=== PATIENT | female | born 2000 | race Caucasian/White ===

== ENCOUNTER 2023-08-19 09:29 | Inpatient (IN) | payer MEDICAID, SELFPAY ==
[2023-08-19 09:31] VITALS: BP 133/89; PULSE 60; RESP 16; TEMP 36.6; O2SAT 100
--- NOTE | 2023-08-19 10:09 | EX.ED.SAOD ---
HPI History of Present Illness Chief Complaint: Substance Abuse Informant: patient Onset/Context/Timing Onset: Yesterday Context: Gradual Onset Timing: Continuous Worsened by: Nothing Relieved by: Nothing Associated Symptoms Associated Symptoms: Positive for vomiting*, fever* and palpatations; Negative for diarrhea*, rash*, seizure, tremor, change in mental status, suicidal ideation or homicidal ideation Narrative Narrative: Patient Johann requesting detox from fentanyl, benzos, and amphetamines. Patient states her last use was yesterday. Patient states she uses approximately half a gram per day. Patient has been through detox at a different facility a few months ago. Patient states she was seen in the emergency department at [facility] yesterday and was diagnosed with a urinary tract infection. Patient states she was given 1 dose of an antibiotic for that but was not given a prescription for any antibiotics. Patient admits to some nausea and vomiting. Patient admits to subjective fevers, chills, and sweats. Patient also admits to some palpitations. Patient denies any diarrhea. Patient denies any seizures or tremors. Patient denies any suicidal or homicidal ideations. PFSH PFSH Medical History no medical history no medical history Home Medications NK 08/19/23 [History Last Taken Unknown] Allergy/AdvReac Type Severity Reaction Status Date / Time No Known Allergies Allergy Verified 08/19/23 09:34 Surgical History no surgical history no surgical history Social History (Updated 08/19/23 @ 10:[address] Dewey Knight, DO) Smoking Status: Current every day smoker tobacco type: cigarettes Electronic Cigarette Use: with nicotine substance use type: amphetamines and opiates ROS ROS ED Constitutional Constitutional ED: Reports chills, fever(s), subjective and sweats Eyes Eyes: Denies blurry vision or change in vision ENT ENT ED: Denies rhinorrhea or sore throat Cardiovascular Cardiovascular: Reports palpitations; Denies chest pain Respiratory/Chest Respiratory/Chest: Denies cough or dyspnea Gastrointestinal Gastrointestinal: Reports nausea and vomiting; Denies diarrhea Genitourinary Genitourinary ED: Reports dysuria; Denies hematuria Musculoskeletal Musculoskeletal: Denies back pain or neck pain Integumentary Denies abscess or rash Neurologic Neurologic: Denies headache(s) or weakness Allergic/Immunologic Allergic/Immunologic ED: Denies mouth swelling or urticaria EXAM Physical Exam Const Vital Signs: 08/19/23 09:31 Temperature 97.9 F Temperature Source Temporal Pulse Rate 60 Respiratory Rate 16 Blood Pressure 133/89 H Blood Pressure Mean 103 Pulse Ox 100 Oxygen Delivery Method Room Air Positive well nourished and well developed General Appearance ED: well developed and NAD HEENT Reports moist mucous membranes Neck supple and no JVD Resp normal respiratory effort and clear to auscultation bilaterally Cardio regular rate and regular rhythm GI soft to palpation, non-tender and non-distended Neuro oriented x3, CN's II-XII intact bilaterally and no sensory deficits noted Sensorium / Orientation: alert Motor Exam: strength 5/5 throughout Psych mental status grossly normal and thought process normal MDM MDM MDM Narrative Medical decision making narrative: Medical screening labs will be obtained. CBC will be obtained to assess for leukocytosis and anemia. Comprehensive metabolic profile will be obtained to assess for hepatic function, renal function, and electrolyte abnormality. Urinalysis will be obtained to assess for urinary tract infection and hematuria. Serum hCG will be obtained to assess for . Serum alcohol level will be obtained to assess for alcohol intoxication. Urine tox screen will be obtained to assess for substance abuse. Lab Data Attestation: I reviewed the patient's lab results. Lab results narrative: CBC was reviewed and was within normal limits. Comprehensive metabolic profile was reviewed and was within normal limits. Serum hCG was reviewed and was negative. Urinalysis was reviewed. There is a leukocyte esterase of 500 with 50-100 white blood cells. There is 2+ bacteria. Urine tox screen was reviewed and was positive for cannabinoids and benzodiazepines. Serum alcohol level was reviewed and was normal at less than 3.0. Labs: Laboratory Results - last 24 hr 08/19/23 10:36 WBC 10.2 RBC 4.35 Hgb 12.3 Hct 38.2 MCV 87.8 MCH 28.3 MCHC 32.2 RDW Std Deviation 41.5 RDW Coeff of Christin 12.7 Plt Count 174 MPV 12.4 H Immature Gran % (Auto) 0.300 Neut % (Auto) 81.2 H Lymph % (Auto) 14.7 L [place] % (Auto) 3.4 Eos % (Auto) 0.0 Baso % (Auto) 0.4 Absolute Neuts (auto) 8.3 H Absolute Lymphs (auto) 1.50 Nucleated RBC % 0 Sodium 145 Potassium 3.9 Chloride 115 H Carbon Dioxide 25.0 Anion Gap 5 BUN 10 Creatinine 0.69 Estim Creat Clear Calc 85.31 Est GFR (MDRD) Af Amer 138 Est GFR (MDRD) Non-Af 114 BUN/Creatinine Ratio 14.5 Glucose 108 H Calcium 8.9 Total Bilirubin 0.60 AST 107 H ALT 133 H Alkaline Phosphatase 87 Total Protein 6.8 Albumin 3.7 Globulin 3.1 Albumin/Globulin Ratio 1.2 Serum , Qual NEGATIVE Urine Color Yellow Urine Clarity Sl. Cloudy Urine pH 5.0 Ur Specific [place] 1.025 Urine Protein 100 H Urine Glucose (UA) Normal Urine Ketones 5 H Urine Occult Blood 10 H Urine Nitrite Negative Urine Bilirubin Negative Urine Urobilinogen 1 H Ur Leukocyte Esterase 500 H Urine RBC 0 SEEN Urine WBC 50-100 SEEN Ur Squamous Epith Cells 0-5 SEEN Urine Bacteria 2+ Urine Mucus 3+ Urine Opiates Screen NEGATIVE Urine Methadone Screen NEGATIVE Ur Barbiturates Screen NEGATIVE Ur Phencyclidine Scrn NEGATIVE Ur Amphetamines Screen NEGATIVE MDMA (Ecstasy) Screen NEGATIVE U Benzodiazepines Scrn POSITIVE H Urine Cocaine Screen NEGATIVE U Cannabinoids Screen POSITIVE H Ur Drug Screen Comment Ethyl Alcohol < 3.0 Management Discussion w/another healthcare provider: Hospitalist Treatment and Re-Evaluation Narrative: Patient was given a dose of Zofran here. Patient was started on Macrobid. Urine culture was ordered. Case was discussed with the hospitalist. She will admit the patient to her service. Patient understood and was agreeable with the plan. All questions were answered. Discharge Plan Triage Chief Complaint: Substance Abuse ED Provider: Dewey Knight Dx/Rx/DC Orders Clinical Impression: Urinary tract infection, Opiate withdrawal, Benzodiazepine withdrawal Prescriptions: No Action NK Primary Care Provider: Care Physician,No Primary Referrals: Care Physician,No Primary [Primary Care Provider] - Disposition Disposition: Acute Care Hospital [facility]
[2023-08-19 10:12] VITALS: BMI 15.7
[2023-08-19 10:41] LABS: Red Blood Cells-Urine 0 SEEN /hpf (0-5)
[2023-08-19 10:42] LABS: Absolute Neutrophil Count 8.3 X10^3/uL (2.0-7.7); Basophil# 0.04 X10^3/uL; Basophil% 0.4 % (0-1); Hematocrit 38.2 % (37-47); Hemoglobin 12.3 g/dL (12.0-15.0); Lymphocyte % 14.7 % (19-41); Mean Corp Hgb Conc 32.2 g/dL (32-36); Mean Corpuscular Hgb 28.3 pg (27.0-32.0); Mean Corpuscular Volume 87.8 fL (81-99); Mean Platelet Vol. 12.4 fl (6.2-12.0); Monocyte# 0.35 X10^3/uL; Monocyte% 3.4 % (0-10); NRBC Flagged by Analyzer 0 % (0-5); Neutrophil % 81.2 % (47-70); Platelet Count 174 K/mm3 (150-450); RBC Distribution Width CV 12.7 % (11.6-14.6); RBC Distribution Width SD 41.5 fl (35.1-43.9); Red Blood Count 4.35 M/mm3 (4.2-5.4); White Blood Count 10.2 K/mm3 (4.4-11.0)
[2023-08-19] MEDS: Ondansetron ODT 4 MG Tablet PO (10:43)
[2023-08-19 10:48] LABS: Color, Urine Yellow (Yellow); Glucose, Dipstick Normal (Normal); Ketone-Dipstick 5 mg/dl (Negative); Leukocyte Esterase-Dipstick 500 /ul (Negative); Nitrite-Dipstick Negative (Negative); Occult Blood-Urine 10 /ul (Negative); Protein-Dipstick 100 mg/dl (Negative); Specific Gravity, Urine 1.025 (1.002-1.030); Urine Bilirubin Dipstick Negative (Negative); Urine Clarity Sl. Cloudy (Clear); Urine Urobilinogen 1 mg/dl (Normal)
[2023-08-19 10:52] LABS: Internal QC Validated? YES +Cl - CLEAR BKGD; Pregnancy, Serum, hCG Quali. NEGATIVE Negative
[2023-08-19 11:00] LABS: ALB/GLOB Ratio 1.2 RATIO (0.9-2.4); AST(SGOT) 107 U/L (15-37); Alanine Aminotransfer ALT/SGPT 133 U/L (13-56); Albumin, Serum 3.7 g/dL (3.2-5.0); Alkaline Phosphatase 87 U/L (45-117); Anion Gap 5 (5-15); BUN 10 mg/dL (7-18); BUN/Creat Ratio 14.5 RATIO (10-20); Calcium,Total 8.9 mg/dL (8.5-10.1); Chloride 115 mmol/L (98-107); Creatinine, Serum 0.69 mg/dL (0.55-1.02); EST Glomerular Filtration Rate 114 mL/min (>60); Est Glom Filt Rate - Afr Amer 138 mL/min (>60); Estimated Creatinine Clearance 85.31 ml/min; Globulin 3.1 g/dL (2.2-4.2); Glucose 108 mg/dL (74-106); Potassium 3.9 mmol/L (3.5-5.1); Protein, Total 6.8 g/dL (6.4-8.2); Sodium Level 145 mmol/L (136-145)
[2023-08-19 11:06] LABS: Amphetamine Urine VISTA NEGATIVE (<1000 ng/mL); Barbiturate Urine VISTA NEGATIVE (< 200 ng/mL); Benzodiazepine Urine VISTA POSITIVE (< 200 ng/mL); Cocaine Urine VISTA NEGATIVE (< 300 ng/mL); Ecstacy Urine VISTA NEGATIVE (< 500 ng/mL); Methadone Urine VISTA NEGATIVE (< 300 ng/mL); PCP Urine VISTA NEGATIVE (< 25 ng/mL); THC Urine VISTA POSITIVE (< 50 ng/mL); Vista UDS pH Range 5
[2023-08-19 11:08] LABS: Bacteria 2+ /hpf (None Seen); Mucous, Urine 3+ /hpf (<or=2+); Squamous Epithelial Cells - UA 0-5 SEEN /hpf (5-10); White Blood Cells 50-100 SEEN /hpf (0-5)
[2023-08-19 11:12] LABS: Alcohol, Blood (Medical)-Serum < 3.0 mg/dL
[2023-08-19] MEDS: Nitrofurantoin Macrocrystals 100 MG Capsule PO ×2 (11:38→21:24)
--- NOTE | 2023-08-19 11:52 | PCM.HP.STD ---
HPI - General General Date of Admission: 08/19/23 Date of Service: 08/19/23 Chief Complaint: Request for detox from opiates HPI Narrative BHAVANI BRIDGES, is a 23 F who presented to the emergency department at [facility] on 08/19/2023 requesting detox from opiates. There was initially some question of whether or not she needed detox from benzodiazepine however when I asked her about her benzo use she reported that her opiate must have been laced with that she does not use benzodiazepines on a regular basis. She states she uses about 1 g of snorted both fentanyl day. She is never used IV drugs. She states she is been using for at least a couple years now and had about 1 month period of sobriety about a month ago. 2 months ago she was in for detox and did well for about a month but then started using again. Her boyfriend uses as well and is also here for detox. She admits to marijuana use and she states she vapes on a daily basis. She is also used methamphetamines on a regular basis previously as well. She was seen at [facility] yesterday and diagnosed with a urinary tract infection and given antibiotics as well as a prescription but was not able to fill it. Patient states her last dose was yesterday and she currently is just feeling generalized achiness and having some mild nausea. Vital signs at this time are unremarkable. CBC is unremarkable other than a left shift of 81.2% neutrophilia. Her chemistry panel is unremarkable other than transaminases that are elevated with an AST of 107 and an ALT of 133. I did question her about hepatitis and she states she is not aware that she is positive and has never used IV drugs. Serum test is negative. UA is consistent with infection showing leuk esterase, loaded with white cells and 2+ bacteria. The emergency department she was given Macrobid for UTI and request for admission was made for detox. [facility] Medical History Marijuana use Tobacco abuse Medical History no medical history Home Medications NK 08/19/23 [History Last Taken Unknown] Allergy/AdvReac Type Severity Reaction Status Date / Time No Known Allergies Allergy Verified 08/19/23 09:34 no significant family history Surgical History no surgical history no surgical history Social History (Updated 08/19/23 @ 12:[address] Amy Edwar, DO) Smoking Status: Current every day smoker tobacco type: cigarettes Electronic Cigarette Use: with nicotine alcohol intake: never substance use type: marijuana, amphetamines and opiates ROS Constitutional Constitutional: Reports chills and malaise; Denies anorexia, change in weight, fatigue, fever(s), night sweats, weakness or other Eyes Eyes: Denies blurry vision, change in eye color, change in vision, discharge from eye(s), double vision, erythema, eye pain, loss of vision or other ENT HEENT: Denies abnormal hearing, dysphagia, ear pain, epistaxis, headache(s), hearing loss, nasal congestion, nasal discharge, post nasal drip, sinus pressure, sore throat or other Cardiovascular Cardiovascular: Denies chest pain, claudication, dyspnea on exertion, edema, lightheadedness, orthopnea, palpitations, paroxysmal nocturnal dyspnea, rapid heart rate, syncope or other Respiratory/Chest Respiratory/Chest: Denies cough, dyspnea, excessive phlegm production, hemoptysis, productive cough, shortness of breath at rest, shortness of breath with exertion, wheezing or other Gastrointestinal Gastrointestinal: Reports nausea; Denies abdominal pain, coffee ground emesis, constipation, diarrhea, dyspepsia, hematemesis, hematochezia, loose stools, melena, vomiting or other Genitourinary Genitourinary: Denies burning urination, difficulty urinating, dysuria, hematuria, nocturia, urinary frequency, urinary hesitancy, urinary incontinence, urinary urgency or other Musculoskeletal Musculoskeletal: Reports myalgias; Denies arthralgias, back pain, joint pain, joint stiffness, joint swelling, neck pain or other Neurologic Neurologic: Denies abnormal gait, abnormal speech, confusion, disequilibrium, dizziness, focal weakness, headache(s), numbness, paresthesias, seizure-like activity, seizures, syncope, tingling, tremor(s) or other Psychiatric Psychiatric: Denies anxiety, depression, homicidal ideation, suicidal ideation or other Endocrine Endocrinology: Denies change in body appearance, cold intolerance, excessive sweating, heat intolerance, polydipsia, polyuria or other Hematologic/Lymphatic Hematologic/Lymphatic: Denies anemia, easy bleeding, easy bruising, lymphadenopathy or other Allergic/Immunologic Allergic/Immunologic: Denies rhinitis, hives, eczemia, asthma or other Vital Signs Vital Signs Vital Signs: 08/19/23 09:31 Temperature 97.9 F Temperature Source Temporal Pulse Rate 60 Respiratory Rate 16 Blood Pressure 133/89 H Blood Pressure Mean 103 Pulse Ox 100 Oxygen Delivery Method Room Air Weight Weight: 41.9 kg Body Mass Index (BMI) 15.7 Physical Exam Const alert, oriented x3 and no apparent distress; Negative for average body habitus, healthy appearing or well nourished Constitutional Narrative: Extremely thin, white female, lying in bed, appears comfortable nontoxic appears under nourished HEENT normocephalic, head/scalp atraumatic, hearing grossly normal bilaterally and moist oral mucous membranes HEENT Narrative: Patient is good, Mallampati is 1, no thrush Eyes PERRL, EOMs intact bilaterally and conjunctivae normal Eyes Narrative: Eyes are slightly bloodshot Neck no lymphadenopathy and supple Neck Narrative: Trachea midline, notes rate enlargement Resp normal respiratory effort, no retractions, no use of accessory muscles and clear to auscultation bilaterally Auscultation: Negative for rales, rhonchi or wheezes Cardio regular rate, regular rhythm, S1 normal heart sound, S2 normal heart sound, no murmurs, no rub, no gallops and no clicks GI normal to inspection, nondistended, normoactive bowel sounds, soft to palpation and non-tender GI Narrative: Scaphoid abdomen Extremity no clubbing, cyanosis or edema Extremity Narrative: Decreased lean muscle mass Skin skin turgor normal, no jaundice, no petechiae and no mottling Neuro oriented x3, CN's II-XII intact bilaterally, moves all extremities and no focal motor deficits Speech: speech normal Motor Exam: strength 5/5 throughout Psych affect normal Psych Narrative: Eye contact is good, patient interacts appropriately, appears a bit anxious Results Lab / Micro Data 08/19/23 10:36 08/19/23 10:36 Labs: Laboratory Results - last 24 hr 08/19/23 10:36: WBC 10.2, RBC 4.35, Hgb 12.3, Hct 38.2, MCV 87.8, MCH 28.3, MCHC 32.2, RDW Std Deviation 41.5, RDW Coeff of Christin 12.7, Plt Count 174, MPV 12.4 H, Immature Gran % (Auto) 0.300, Neut % (Auto) 81.2 H, Lymph % (Auto) 14.7 L, [place] % (Auto) 3.4, Eos % (Auto) 0.0, Baso % (Auto) 0.4, Absolute Neuts (auto) 8.3 H, Absolute Lymphs (auto) 1.50, Nucleated RBC % 0, Sodium 145, Potassium 3.9, Chloride 115 H, Carbon Dioxide 25.0, Anion Gap 5, BUN 10, Creatinine 0.69, Estim Creat Clear Calc 85.31, Est GFR (MDRD) Af Amer 138, Est GFR (MDRD) Non-Af 114, BUN/Creatinine Ratio 14.5, Glucose 108 H, Calcium 8.9, Total Bilirubin 0.60, AST 107 H, ALT 133 H, Alkaline Phosphatase 87, Total Protein 6.8, Albumin 3.7, Globulin 3.1, Albumin/Globulin Ratio 1.2, Serum , Qual NEGATIVE, Urine Color Yellow, Urine Clarity Sl. Cloudy, Urine pH 5.0, Ur Specific [place] 1.025, Urine Protein 100 H, Urine Glucose (UA) Normal, Urine Ketones 5 H, Urine Occult Blood 10 H, Urine Nitrite Negative, Urine Bilirubin Negative, Urine Urobilinogen 1 H, Ur Leukocyte Esterase 500 H, Urine RBC 0 SEEN, Urine WBC 50-100 SEEN, Ur Squamous Epith Cells 0-5 SEEN, Urine Bacteria 2+, Urine Mucus 3+, Urine Opiates Screen NEGATIVE, Urine Methadone Screen NEGATIVE, Ur Barbiturates Screen NEGATIVE, Ur Phencyclidine Scrn NEGATIVE, Ur Amphetamines Screen NEGATIVE, MDMA (Ecstasy) Screen NEGATIVE, U Benzodiazepines Scrn POSITIVE H, Urine Cocaine Screen NEGATIVE, U Cannabinoids Screen POSITIVE H, Ur Drug Screen Comment , Ethyl Alcohol < 3.0 Assessment & Plan Assessment/Plan (1) Opiate abuse, continuous: (2) Methamphetamine abuse: (3) UTI (urinary tract infection): (4) Transaminitis: (5) Desire for detoxification: PLAN: Plan Opiate abuse with pending withdrawal -Patient uses 1 g daily -Recently was sober for a month but restarted using -No significant symptoms at this time -Subutex per [facility] protocol -Supportive medication -180 consultation Acute urinary tract infection -Macrobid started the emergency department -Urine culture sent -Continue Macrobid x 3 days on the floor and watch for sensitivities Transaminitis -Patient denies having hepatitis C -Denies ever using IV drugs -Check hepatitis C antibody and HIV -Patient is unaware if she stopped with anybody who is hepatitis C positive Polysubstance abuse -See above -Recommend cessation Nicotine abuse -Patient vapes on a regular basis -Nicotine patch available DVT prophylaxis -Low risk -Recommend early and frequent ambulation CODE STATUS -Full code Charges/Coding Visit Charges Inpatient E&M: 25043 Init Hosp L2
--- NOTE | 2023-08-19 11:56 | NURSING ---
MED SURG DAYNA OPIATE WITHDRAWAL, BENZODIAZEPINE WITHDRAWAL, UTI
[2023-08-19 12:28] VITALS: BP 128/79; PULSE 70; RESP 16; TEMP 36.7; O2SAT 100
[2023-08-19 13:46] VITALS: BP 124/74; PULSE 54; RESP 18; TEMP 37; O2SAT 99
[2023-08-19 14:08] VITALS: BMI 15.6
[2023-08-19] MEDS: hydrOXYzine PAM 25 MG Capsule 50 MG PO ×2 (14:38→19:45)
[2023-08-19] MEDS: Ibuprofen 400 MG Tablet PO ×2 (14:39→19:45)
[2023-08-19] MEDS: Buprenorphine HCl 2 MG TAB.SUBL SL ×2 (14:39→21:27)
--- NOTE | 2023-08-19 14:49 | CPS ---
Not interested in I.S. or PEP.
[2023-08-19 16:01] LABS: HIV - WCH Non-Reactive (Nonreactive); Hepatitis C Antibody Non-Reactive (Nonreactive)
[2023-08-19] MEDS: Gabapentin 300 MG Capsule PO (16:24)
[2023-08-19] MEDS: Ondansetron 8 MG Tablet PO (16:24)
[2023-08-19 19:35] VITALS: BP 122/86; PULSE 41; RESP 16; TEMP 37.2; O2SAT 100
[2023-08-19] MEDS: Dicyclomine 10 MG Capsule 20 MG PO (19:45)
[2023-08-19 19:46] VITALS: PULSE 48
[2023-08-19] MEDS: busPIRone 5 MG Tablet PO (21:23)
[2023-08-19] MEDS: traZODone 100 MG Tablet PO (21:24)
[2023-08-19] MEDS: MELATONIN 3 MG TABLET PO (21:24)
[2023-08-20] VITALS (9 sets, daily range): BP systolic 96–112; BP diastolic 54–72; PULSE 43–48; RESP 16–18; TEMP 36.8–37.7; O2SAT 98
[2023-08-20] MEDS: Ondansetron 8 MG Tablet PO (03:20)
[2023-08-20] MEDS: Buprenorphine HCl 2 MG TAB.SUBL SL ×3 (05:54→21:11)
[2023-08-20] MEDS: proMETHazine 25 MG/ML Syringe 12.5 MG IM (08:50)
--- NOTE | 2023-08-20 08:50 | PCM.PN.HOSP ---
Reason for Visit Reason for Visit: Opiate detox Subjective Subjective Patient with intermittent nausea and vomiting last evening. Has taken several hot showers. Question cyclic vomiting syndrome with history of marijuana abuse. Patient also appears to have severe malnutrition. P.o. intake has been poor due to intermittent nausea and vomiting. Will try IM Phenergan and if this does not improve oral intake may need to start some IV fluids and IV antibiotics to treat her UTI as she has not yet tolerated her oral medications. Objective Data Objective Data Vital Signs: Vital Signs Temp Pulse Resp BP Pulse Ox O2 Del Method 99.8 F H 45 L 16 112/72 98 Room Air 08/20/23 03:14 08/20/23 03:14 08/20/23 03:14 08/20/23 03:14 08/20/23 03:14 08/20/23 03:14 Oxygen Delivery Method Room Air Weight: 41.4 kg Body Mass Index (BMI) 15.6 Intake & Output: Intake and Output for Last 24 Hours 08/18/23 08/19/23 08/20/23 23:59 23:59 23:59 Intake Total 600 / 900 400 / 400 Balance 600 / 900 400 / 400 Medical Nutrition Assessment Dietitian: Malnutrition Criteria Met Start: 08/19/23 16:29 Freq: Status: Active Protocol: Document 08/19/23 16:29 RMA (Rec: 08/19/23 16:29 RMA [id number]) Nutrition Malnutrition Evidence of Malnutrition Exists Yes Malnutrition (severe): Chronic,Social/Behavioral/ Environmental Evidenced By Suboptimal Energy Intake ( Severe),Weight Loss (Severe), Physical Changes (Severe) Clinical Problem Chronic Disease or Condition Related Malnutrition Etiology Severe pro-eri malnutrition in the context of social circumstance/drug abuse related to inadequate oral/ energy intake Signs/Symptoms as evidenced by BMI 15.7, ~9% weight loss x past 6-12 months , PO meeting less than 50% estimated nutrition needs x 6 months and severe muscle wasting and fat depletion in the face, orbitals and clavicle. Status Active Problem Recommendation Dietitian Recommendations/Changes Continue liberalized regular diet and encourage PO at meals . Will add 240mL ensure plus high protein with breakfast meal. Will add ice cream BID w/ lunch and dinner. Trend weight as new weights available. Lab / Micro Data 08/19/23 10:36 08/19/23 10:36 Labs: Laboratory Results - last 24 hr 08/19/23 10:36: WBC 10.2, RBC 4.35, Hgb 12.3, Hct 38.2, MCV 87.8, MCH 28.3, MCHC 32.2, RDW Std Deviation 41.5, RDW Coeff of Christin 12.7, Plt Count 174, MPV 12.4 H, Immature Gran % (Auto) 0.300, Neut % (Auto) 81.2 H, Lymph % (Auto) 14.7 L, [place] % (Auto) 3.4, Eos % (Auto) 0.0, Baso % (Auto) 0.4, Absolute Neuts (auto) 8.3 H, Absolute Lymphs (auto) 1.50, Nucleated RBC % 0, Sodium 145, Potassium 3.9, Chloride 115 H, Carbon Dioxide 25.0, Anion Gap 5, BUN 10, Creatinine 0.69, Estim Creat Clear Calc 85.31, Est GFR (MDRD) Af Amer 138, Est GFR (MDRD) Non-Af 114, BUN/Creatinine Ratio 14.5, Glucose 108 H, Calcium 8.9, Total Bilirubin 0.60, AST 107 H, ALT 133 H, Alkaline Phosphatase 87, Total Protein 6.8, Albumin 3.7, Globulin 3.1, Albumin/Globulin Ratio 1.2, Serum , Qual NEGATIVE, Urine Color Yellow, Urine Clarity Sl. Cloudy, Urine pH 5.0, Ur Specific [place] 1.025, Urine Protein 100 H, Urine Glucose (UA) Normal, Urine Ketones 5 H, Urine Occult Blood 10 H, Urine Nitrite Negative, Urine Bilirubin Negative, Urine Urobilinogen 1 H, Ur Leukocyte Esterase 500 H, Urine RBC 0 SEEN, Urine WBC 50-100 SEEN, Ur Squamous Epith Cells 0-5 SEEN, Urine Bacteria 2+, Urine Mucus 3+, Urine Opiates Screen NEGATIVE, Urine Methadone Screen NEGATIVE, Ur Barbiturates Screen NEGATIVE, Ur Phencyclidine Scrn NEGATIVE, Ur Amphetamines Screen NEGATIVE, MDMA (Ecstasy) Screen NEGATIVE, U Benzodiazepines Scrn POSITIVE H, Urine Cocaine Screen NEGATIVE, U Cannabinoids Screen POSITIVE H, Ur Drug Screen Comment , Ethyl Alcohol < 3.0 08/19/23 14:21: Hepatitis C Antibody Non-Reactive, HIV 1&2 Antibody Non-Reactive Physical Exam Const alert, oriented x3 and no apparent distress; Negative for average body habitus, healthy appearing or well nourished Constitutional Narrative: Extremely thin, white female, lying in bed, appears as if she is not feeling well but nontoxic appears malnourished HEENT normocephalic, head/scalp atraumatic, hearing grossly normal bilaterally and moist oral mucous membranes HEENT Narrative: Mallampati 1 Resp normal respiratory effort, no retractions, no use of accessory muscles and clear to auscultation bilaterally Auscultation: Negative for rales, rhonchi or wheezes Cardio regular rate, regular rhythm, S1 normal heart sound, S2 normal heart sound, no murmurs, no rub, no gallops and no clicks GI normal to inspection, nondistended, normoactive bowel sounds, soft to palpation and non-tender GI Narrative: Scaphoid abdomen Extremity no clubbing, cyanosis or edema Extremity Narrative: Decreased lean muscle mass Skin no petechiae Neuro oriented x3, moves all extremities and no focal motor deficits Psych Psych Narrative: Affect is flat and I suspect this is related to her feeling poorly, appears if she is not feeling well but eye contact is good patient interacts appropriately Assessment & Plan Assessment/Plan (1) Opiate abuse, continuous: (2) Methamphetamine abuse: (3) UTI (urinary tract infection): (4) Transaminitis: (5) Desire for detoxification: (6) Nausea and vomiting: (7) Severe malnutrition: PLAN: Plan Opiate abuse with pending withdrawal -Patient uses 1 g daily -Recently was sober for a month but restarted using -No significant symptoms at this time -Subutex per [facility] protocol -Supportive medication -180 consultation pending Acute urinary tract infection -Macrobid started the emergency department -Urine culture sent and pending -Continue Macrobid x 3 days on the floor and watch for sensitivities -If patient is not able to tolerate p.o. with addition of IM Phenergan may need to transition to IV and start IV fluids Nausea and vomiting -Suspect may be related to cyclic vomiting syndrome and withdrawal -Continue as needed antiemetics -Added IM Phenergan x 1 dose if this is not helpful may need to start some IV fluids and IV antibiotics for the above Severe malnutrition -Dietitian consulted -Discussed with nursing to obtain some milk shakes to supplement her diet -HIV is negative -Urine is negative and patient is not having menses likely related to malnutrition Transaminitis -Patient denies having hepatitis C -Denies ever using IV drugs -Hepatitis C and HIV negative -Follow-up as an outpatient for repeat lab Polysubstance abuse -See above -Recommend cessation Nicotine abuse -Patient vapes on a regular basis -Nicotine patch available DVT prophylaxis -Low risk -Recommend early and frequent ambulation CODE STATUS -Full code Charges/Coding Visit Charges Inpatient E&M: 59923 Subs Hosp L2
[2023-08-20] MEDS: Nitrofurantoin Macrocrystals 100 MG Capsule PO ×2 (11:00→21:11)
[2023-08-20] MEDS: Folic Acid 1 MG Tablet PO (11:01)
[2023-08-20] MEDS: Thiamine Hydrochloride 100 MG Tablet PO (11:01)
[2023-08-20] MEDS: busPIRone 5 MG Tablet PO ×2 (11:01→21:10)
[2023-08-20] MEDS: Acetaminophen 325 MG Tablet 650 MG PO (21:11)
[2023-08-20] MEDS: MELATONIN 3 MG TABLET PO (21:11)
[2023-08-20] MEDS: traZODone 100 MG Tablet PO (21:11)
[2023-08-21 01:37] VITALS: BP 93/57; PULSE 44; RESP 16; TEMP 36.8; O2SAT 98
[2023-08-21 05:41] VITALS: BP 112/64; PULSE 47; RESP 14; TEMP 36.6; O2SAT 98
[2023-08-21] MEDS: Buprenorphine HCl 2 MG TAB.SUBL SL ×2 (05:44→14:53)
[2023-08-21] MEDS: Dicyclomine 10 MG Capsule 20 MG PO (05:44)
[2023-08-21] MEDS: hydrOXYzine PAM 25 MG Capsule 50 MG PO ×2 (05:44→20:33)
[2023-08-21 08:00] VITALS: PULSE 43
--- NOTE | 2023-08-21 08:15 | PN.HOSP_ITS ---
Subjective Subjective Having nausea and vomiting. Objective Data Objective Data Vital Signs: Vital Signs Temp Pulse Resp BP Pulse Ox O2 Del Method 36.6 C 47 L 14 112/64 98 Room Air 08/21/23 05:41 08/21/23 05:41 08/21/23 05:41 08/21/23 05:41 08/21/23 05:41 08/21/23 05:41 Oxygen Delivery Method Room Air Weight: 41.4 kg Body Mass Index (BMI) 15.6 Intake & Output: Intake and Output for Last 24 Hours 08/19/23 08/20/23 08/21/23 23:59 23:59 23:59 Intake Total 600 / 900 1150 / 1150 100 / 100 Balance 600 / 900 1150 / 1150 100 / 100 Medical Nutrition Assessment Dietitian: Malnutrition Criteria Met Start: 08/19/23 16:29 Freq: Status: Active Protocol: Document 08/19/23 16:29 RMA (Rec: 08/19/23 16:29 RMA [id number]) Nutrition Malnutrition Evidence of Malnutrition Exists Yes Malnutrition (severe): Chronic,Social/Behavioral/ Environmental Evidenced By Suboptimal Energy Intake ( Severe),Weight Loss (Severe), Physical Changes (Severe) Clinical Problem Chronic Disease or Condition Related Malnutrition Etiology Severe pro-eri malnutrition in the context of social circumstance/drug abuse related to inadequate oral/ energy intake Signs/Symptoms as evidenced by BMI 15.7, ~9% weight loss x past 6-12 months , PO meeting less than 50% estimated nutrition needs x 6 months and severe muscle wasting and fat depletion in the face, orbitals and clavicle. Status Active Problem Recommendation Dietitian Recommendations/Changes Continue liberalized regular diet and encourage PO at meals . Will add 240mL ensure plus high protein with breakfast meal. Will add ice cream BID w/ lunch and dinner. Trend weight as new weights available. Lab / Micro Data 08/19/23 10:36 08/19/23 10:36 Micro: Microbiology 08/19/23 10:30 Urine, Clean Catch Urine Culture - Preliminary Culture exhibits no growth. Physical Exam Const alert and no apparent distress Constitutional Narrative: non-toxic. HEENT head/scalp atraumatic and moist oral mucous membranes Assessment & Plan Assessment/Plan (1) Opiate abuse, continuous: (2) Methamphetamine abuse: (3) UTI (urinary tract infection): (4) Transaminitis: (5) Desire for detoxification: (6) Nausea and vomiting: (7) Severe malnutrition: PLAN: Plan Opiate withdrawal * buprenorphine taper * 180 consultation pending Acute urinary tract infection * Nitrofurantoin through the * Urine culture pending Nausea and vomiting * Etiology may be cyclic vomiting syndrome, withdrawal v cannabinoid hyperemesis syndrome. More likely associated with withdrawal as developed after she stopped using. * Continue as needed antiemetics Severe malnutrition * Dietitian consulted * Discussed with nursing to obtain some milk shakes to supplement her diet * HIV is negative * Urine is negative and patient is not having menses likely related to malnutrition Transaminitis * Patient denies having hepatitis C. Denies ever using IV drugs. Hepatitis C and HIV negative. Follow-up as an outpatient for repeat lab Polysubstance abuse * Complicates recovery Nicotine abuse * -Patient vapes on a regular basis-Nicotine patch available DVT prophylaxis -Low risk -Recommend early and frequent ambulation CODE STATUS -Full code Disposition: plan on discharge on 08/22. Charges/Coding Visit Charges Inpatient E&M: 29725 Subs Hosp L1
[2023-08-21] MEDS: Folic Acid 1 MG Tablet PO (09:21)
[2023-08-21] MEDS: Nitrofurantoin Macrocrystals 100 MG Capsule PO ×2 (09:22→22:03)
[2023-08-21] MEDS: busPIRone 5 MG Tablet PO ×2 (09:22→22:03)
[2023-08-21] MEDS: Thiamine Hydrochloride 100 MG Tablet PO (09:22)
[2023-08-21 09:45] VITALS: BP 111/52; PULSE 43; RESP 16; TEMP 36.8; O2SAT 98
[2023-08-21] MEDS: Ondansetron 8 MG Tablet PO (12:03)
--- NOTE | 2023-08-21 12:13 | ADDICTION ---
This designer writer met with PT to conduct ASAM, MSE, AUDIT assessments and to plan for d/c. PT A+Ox4 and participated actively. All assessments completed and placed in PT's chart. PT plans to f/u with [facility] for follow-up treatment services. PT did not indicate a need for transportation post d/c from [facility].
[2023-08-21 15:03] VITALS: BP 118/74; PULSE 47; RESP 16; TEMP 37.1; O2SAT 98
[2023-08-21 22:00] VITALS: BP 100/64; PULSE 70; RESP 16; TEMP 37.4; O2SAT 99
[2023-08-21] MEDS: traZODone 100 MG Tablet PO (22:06)
[2023-08-22 02:42] VITALS: BP 101/66; PULSE 55; RESP 16; TEMP 37.4; O2SAT 96
[2023-08-22] MEDS: Buprenorphine HCl 2 MG TAB.SUBL SL (02:45)
--- NOTE | 2023-08-22 07:10 | DS.PCM_ITS ---
Providers Date of Admission: 08/19/23 Primary Care Physician: No Primary Care Phys Reason For Visit: OPIATE AND BENZO DETOX Diagnosis Discharge Diagnosis (1) Opiate abuse, continuous: Status: Acute Code(s): F11.10 - Opioid abuse, uncomplicated (2) Methamphetamine abuse: Status: Acute Code(s): F15.10 - Other stimulant abuse, uncomplicated (3) UTI (urinary tract infection): Status: Acute Code(s): N39.0 - Urinary tract infection, site not specified (4) Transaminitis: Status: Acute Code(s): R74.01 - Elevation of levels of liver transaminase levels (5) Desire for detoxification: Status: Acute (6) Nausea and vomiting: Status: Acute Code(s): R11.2 - Nausea with vomiting, unspecified (7) Severe malnutrition: Status: Acute Code(s): E43 - Unspecified severe protein-calorie malnutrition Plan Opiate withdrawal * buprenorphine taper * 180 consultation pending * Pt to follow up with [facility]. Acute urinary tract infection * Nitrofurantoin through the * Urine culture pending Nausea and vomiting * Etiology may be cyclic vomiting syndrome, withdrawal v cannabinoid hyperemesis syndrome. More likely associated with withdrawal as developed after she stopped using. * Continue as needed antiemetics Severe malnutrition * Dietitian consulted * Discussed with nursing to obtain some milk shakes to supplement her diet * HIV is negative * Urine is negative and patient is not having menses likely related to malnutrition Transaminitis * Patient denies having hepatitis C. Denies ever using IV drugs. Hepatitis C and HIV negative. Follow-up as an outpatient for repeat lab Polysubstance abuse * Complicates recovery Nicotine abuse * -Patient vapes on a regular basis-Nicotine patch available DVT prophylaxis -Low risk -Recommend early and frequent ambulation CODE STATUS -Full code Disposition: plan on discharge on 08/22. Medications at Discharge Home Medications NK 08/19/23 Physical Exam Narrative Feeling better. Const alert and no apparent distress Medical Records Data Medical Nutrition Assessment Dietitian: Malnutrition Criteria Met Start: 08/19/23 16:29 Freq: Status: Active Protocol: Document 08/19/23 16:29 RMA (Rec: 08/19/23 16:29 RMA [id number]) Nutrition Malnutrition Evidence of Malnutrition Exists Yes Malnutrition (severe): Chronic,Social/Behavioral/ Environmental Evidenced By Suboptimal Energy Intake ( Severe),Weight Loss (Severe), Physical Changes (Severe) Clinical Problem Chronic Disease or Condition Related Malnutrition Etiology Severe pro-eri malnutrition in the context of social circumstance/drug abuse related to inadequate oral/ energy intake Signs/Symptoms as evidenced by BMI 15.7, ~9% weight loss x past 6-12 months , PO meeting less than 50% estimated nutrition needs x 6 months and severe muscle wasting and fat depletion in the face, orbitals and clavicle. Status Active Problem Recommendation Dietitian Recommendations/Changes Continue liberalized regular diet and encourage PO at meals . Will add 240mL ensure plus high protein with breakfast meal. Will add ice cream BID w/ lunch and dinner. Trend weight as new weights available. Weight / BMI Weight Weight: 41.4 kg Body Mass Index (BMI) 15.6 ABG / Lab / Microbiology Data 08/19/23 10:36 08/19/23 10:36 Microbiology: Microbiology 08/19/23 10:30 Urine, Clean Catch Urine Culture - Final Presumptive Lactobacillus sp. D/C Instructions Discharge Diet: No restrictions Meaningful Use Info Meaningful Use Diagnoses (Choose all that apply): None applicable Discharge Plan Admission Admit Date/Time: 08/19/23 11:47 Primary Reason for Your Visit: Opiate withdrawal patient Attending Provider: Dewey Florez Primary Care Provider: Care Physician,No Primary Consulting Providers: Amy Vann Instructions Additional Instructions / Restrictions: Please follow-up with Laura for further counseling services. Discharge Orders/Prescriptions Prescriptions: No Action NK Referrals / Follow Up: Care Physician,No Primary [Primary Care Provider] - Disposition Disposition (needs filled in before D/C Order can be placed): Home, Self Care Charges/Coding Visit Charges Inpatient E&M: 91352 Disch Hosp
[2023-08-22 09:25] VITALS: BP 107/74; PULSE 76; RESP 18; TEMP 36.4; O2SAT 100
[2023-08-22] MEDS: Folic Acid 1 MG Tablet PO (09:29)
[2023-08-22] MEDS: Thiamine Hydrochloride 100 MG Tablet PO (09:29)
[2023-08-22] MEDS: Nitrofurantoin Macrocrystals 100 MG Capsule PO (09:29)
[2023-08-22] MEDS: busPIRone 5 MG Tablet PO (09:29)
== END 2023-08-22 11:43 | disposition home or self-care (01) | DRG 773 ==
LOC: ED 11:52 → MS3 12:04
PROVIDERS: Admitting Provider Internal Medicine; Emergency Provider Emergency Medicine
DX: F11.13 Opioid abuse with withdrawal (principal); E43 Unspecified severe protein-calorie malnutrition; F15.10 Other stimulant abuse, uncomplicated; F17.210 Nicotine dependence, cigarettes, uncomplicated; R11.2 Nausea with vomiting, unspecified; F12.90 Cannabis use, unspecified, uncomplicated; N39.0 Urinary tract infection, site not specified; R74.01 Elevation of levels of liver transaminase levels; Z68.1 Body mass index [BMI] 19.9 or less, adult
CPT/HCPCS: 36415; 80053; 80307; 81001; 82077; 84703; 85025; 86703; 86803; 87086; 87088; 97802; 99284